=== PATIENT | female | born 1980 ===

== ENCOUNTER → 2020-12-27 | Outpatient (CLI) | payer OTHER | END | disposition home or self-care (01) | LOC: PRENATAL 14:00 | PROVIDERS: ATTEND Obstetrics & Gynecology Maternal & Fetal Medicine | DX: O35.0XX1 Maternal care for (suspected) central nervous system malformation in fetus, fetus 1 (principal); O35.3XX1 Maternal care for (suspected) damage to fetus from viral disease in mother, fetus 1; O98.512 Other viral diseases complicating pregnancy, second trimester; O09.512 Supervision of elderly primigravida, second trimester; Z36.89 Encounter for other specified antenatal screening; Z3A.23 23 weeks gestation of pregnancy ==

== ENCOUNTER 2021-04-17 08:45 | Inpatient (IN) | payer OTHER ==
[~2021-04-17] VITALS: Ht 157.5 cm; Wt 3.2 kg
[2021-04-17] MEDS ORDERED: PRENATAL CAPLE1 EAC1 PO (09:43)
[2021-04-20] MEDS ORDERED: IBUPROFEN400 MG PO (09:59)
[2021-04-20] MEDS ORDERED: SIMETHICONE125 M1 PO (10:00)
[2021-04-20] MEDS ORDERED: DOCUSATE SODIU100 MG PO (10:00)
[2021-04-20] MEDS ORDERED: OXYC1TAB9 PO (10:00)
[2021-04-20] MEDS ORDERED: PRENATAL CAPLE1 EAC1 PO (10:01)
== END 2021-04-20 12:36 | disposition home or self-care (01) | DRG 785 ==
LOC: O/R 08:45 → LDR 08:45 → O/R 13:37 → OB/GYN 13:59
PROVIDERS: ADMIT Obstetrics & Gynecology; ATTEND Obstetrics & Gynecology
PROC: 0UB70ZZ Excision of Bilateral Fallopian Tubes, Open Approach (ICD-10-PCS; 2021-04-17)
PROC: 0UT10ZZ Resection of Left Ovary, Open Approach (ICD-10-PCS; 2021-04-17)
PROC: 4A1HXFZ Monitoring of Products of Conception, Cardiac Rhythm, External Approach (ICD-10-PCS; 2021-04-17)
PROC: 10D00Z1 Extraction of Products of Conception, Low, Open Approach (ICD-10-PCS; principal; 2021-04-17 11:15)
DX: O34.211 Maternal care for low transverse scar from previous cesarean delivery (principal); O34.83 Maternal care for other abnormalities of pelvic organs, third trimester; D27.1 Benign neoplasm of left ovary; Z30.2 Encounter for sterilization; Z3A.39 39 weeks gestation of pregnancy; Z37.0 Single live birth

== ENCOUNTER 2021-11-20 10:36 | Emergency (ER) | payer OTHER ==
[~2021-11-20] VITALS: Ht 154.9 cm; Wt 57.2 kg
[~2021-11-20 10:36] MED LIST: DOCUSATE SODIU100 MG PO; IBUPROFEN400 MG PO; OXYC1TAB9 PO; PRENATAL CAPLE1 EAC1 PO; SIMETHICONE125 M1 PO
== END 2021-11-20 16:37 | disposition home or self-care (01) ==
LOC: ER 10:36
DX: M25.512 Pain in left shoulder (principal); M75.32 Calcific tendinitis of left shoulder